=== PATIENT | female | born 1975 | race Caucasian/White ===

== ENCOUNTER 2017-12-11 17:15 | Emergency (ER) | payer MEDICAID ==
[~2017-12-11] VITALS: Ht 175.3 cm; Wt 72.7 kg
[2017-12-11 17:23] VITALS: BP 132/78; Ht 175.3 cm; Wt 72.7 kg
[2017-12-11 18:15] LABS: BASOPHILS 0.2 % (0-2); EOSINOPHILS 2.6 % (0-7); HEMATOCRIT 41.3 % (36.0-48.0); HEMOGLOBIN 14.5 g/dL (12-16); IMMATURE GRANULOCYTES 0.2 % (0-5); MCHC 35.1 g/dL (31.0-37.0); MCV 91.2 fL (80.0-100.0); MEAN PLATELET VOLUME 10.9 fL (7.4-10.4); MONOCYTES 12.6 % (2-11); NEUTROPHILS 53.4 % (40-80); PLATELET COUNT 254 10x3/uL (130-400); RBC 4.53 10x6/uL (4.00-5.40); RDW 12.3 % (11.5-14.5); WBC 6.6 10x3/uL (4.8-10.8)
[2017-12-11 18:19] LABS: APPEARANCE CLEAR (CLEAR); BILIRUBIN NEGATIVE (NEGATIVE); COLOR YELLOW (YELLOW); GLUCOSE NEGATIVE (NEGATIVE); KETONE NEGATIVE (NEGATIVE); NITRITE NEGATIVE (NEGATIVE); PROTEIN NEGATIVE (NEGATIVE); SPECIFIC GRAVITY 1.005 (1.005-1.020); UROBILINOGEN NORMAL (NORMAL)
[2017-12-11 18:31] LABS: ALBUMIN 3.5 g/dL (3.4-5.0); ALKALINE PHOSPHATASE 130 U/L (46-116); ALT (SGPT) 80 U/L (10-68); BILIRUBIN - TOTAL 0.26 mg/dL (0.2-1.3); CALC OSMOLALITY 275 mosm/kg (275-300); CALCIUM 8.3 mg/dL (8.5-10.1); CARBON DIOXIDE 26.8 mmol/L (21.0-32.0); CHLORIDE - SERUM 103 mmol/L (98-107); CREATININE - SERUM 0.6 mg/dL (0.6-1.3); GLUCOSE 93 mg/dL (74-106); POTASSIUM - SERUM 3.8 mmol/L (3.5-5.1); PROTEIN - SERUM 7.1 g/dL (6.4-8.2); SODIUM 139 mmol/L (136-145); UREA NITROGEN 7 mg/dL (7-18); eGFR NON AFRICAN AMERICAN > 90 mL/min (90-120)
[2017-12-11 19:13] LABS: HCG URINE NEGATIVE (NEGATIVE)
[2017-12-11 19:22] LABS: AMYLASE - SERUM 29 U/L (25-115); LIPASE 174 U/L (73-393)
== END 2017-12-11 20:24 | disposition left against medical advice (07) ==
LOC: D.ER 17:15
PROVIDERS: Family Medicine
DX: R10.9 Unspecified abdominal pain (principal)

== ENCOUNTER 2018-10-17 20:33 | Inpatient (IN) | payer MEDICAID ==
[~2018-10-17] VITALS: Ht 175.3 cm; Wt 68.0 kg
[2018-10-17 21:24] LABS: BASOPHILS 0.2 % (0-2); EOSINOPHILS 2.3 % (0-7); HEMATOCRIT 38.5 % (36.0-48.0); HEMOGLOBIN 13.8 g/dL (12-16); IMMATURE GRANULOCYTES 0.3 % (0-5); LYMPHOCYTES 25.3 % (15-50); MCH 31.9 pg (26.0-34.0); MCHC 35.8 g/dL (31.0-37.0); MCV 89.1 fL (80.0-100.0); MEAN PLATELET VOLUME 10.5 fL (7.4-10.4); MONOCYTES 14.9 % (2-11); PLATELET COUNT 298 10x3/uL (130-400); RBC 4.32 10x6/uL (4.00-5.40); RDW 12.4 % (11.5-14.5); WBC 11.9 10x3/uL (4.8-10.8)
--- NOTE | 2018-10-17 21:34 | NUR ---
PT STATES SHE DROPPED URINE SAMPLE IN THE TOILET. WILL TRY TO GET ANOTHER SAMPLE SOON.
[2018-10-17 21:44] LABS: ALBUMIN 3.9 g/dL (3.4-5.0); ALKALINE PHOSPHATASE 158 U/L (46-116); ALT (SGPT) 76 U/L (10-68); BILIRUBIN - TOTAL 0.63 mg/dL (0.2-1.3); CALC OSMOLALITY 280 mosm/kg (275-300); CALCIUM 9.2 mg/dL (8.5-10.1); CARBON DIOXIDE 27.9 mmol/L (21.0-32.0); CHLORIDE - SERUM 101 mmol/L (98-107); CREATININE - SERUM 0.8 mg/dL (0.6-1.3); GLUCOSE 106 mg/dL (74-106); POTASSIUM - SERUM 3.2 mmol/L (3.5-5.1); PROTEIN - SERUM 7.7 g/dL (6.4-8.2); SODIUM 138 mmol/L (136-145); UREA NITROGEN 26 mg/dL (7-18); eGFR NON AFRICAN AMERICAN 82 mL/min (90-120)
[2018-10-17 21:45] LABS: AMYLASE - SERUM 19 U/L (25-115); LIPASE 96 U/L (73-393)
[2018-10-17 21:47] LABS: TROPONIN-I < 0.017 ng/mL (0.000-0.060)
--- NOTE | 2018-10-17 23:57 | NUR ---
advised pt to obtain a urine sample when she is able. provided with urine cup.
--- NOTE | 2018-10-18 00:05 | NUR ---
PT PROVIDED URINE SAMPLE AT THIS TIME. SPECIMEN SENT TO LAB.
[2018-10-18 00:16] LABS: APPEARANCE CLOUDY (CLEAR); BILIRUBIN NEGATIVE (NEGATIVE); COLOR YELLOW (YELLOW); GLUCOSE NEGATIVE (NEGATIVE); HCG URINE NEGATIVE (NEGATIVE); KETONE NEGATIVE (NEGATIVE); NITRITE NEGATIVE (NEGATIVE); PROTEIN TRACE mg/dL (NEGATIVE); UROBILINOGEN NORMAL (NORMAL)
[2018-10-18 00:18] LABS: BACTERIA MODERATE /hpf (NONE SEEN); HYALINE CAST 0-5 /lpf (NONE SEEN); MUCUS <1+ /lpf (NONE SEEN); RED CELLS - URINE 0-5 /hpf (0-5)
[2018-10-18 03:15] VITALS: BP 95/57
--- NOTE | 2018-10-18 03:35 | NUR ---
RECEIVED PT FROM ER VIA W/C. ALERT AND ORIENTED X4. C/O NAUSEA. VOMITED APPROX 100 ML OF YELLOW EMESIS. DENIES PAIN. GEN WEAKNESS NOTED. RESP EVEN AND NONLABORED. NS @ 125 ML/HR INFUSING IN RT HAND WITHOUT DIFF. VOICE IS HOARSE. AMBULATORY. ENCOURAGED TO USE CALL MONTEJO FOR ASSISTANCE. SR ELEVATED X2. CL IN REACH.
--- NOTE | 2018-10-18 04:05 | NUR ---
MEDICATED WITH ZOFRAN FOR N/V. CL IN REACH.
[2018-10-18 04:19] VITALS: BP 97/46; BMI 22.2
--- NOTE | 2018-10-18 08:47 | NUR ---
PT ALERT X 4. BREATH SOUNDS CLEAR BILAT, NON-PRODUCTIVE COUGH, VOICE HOARSE. IV TO RIGHT WRIST, PATENT, DRESSING CDI. PT REPORTING PAIN OF 7/10, MEDICATED PER ORDERS, WILL MONITOR. BED LOW, CALL LIGHT IN REACH. NO OTHER NEEDS AT THIS TIME.
[2018-10-18 09:25] VITALS: BP 147/67
[2018-10-18 09:43] LABS: HEMATOCRIT 36.7 % (36.0-48.0); HEMOGLOBIN 13.3 g/dL (12-16); LYMPHOCYTES 29.8 % (15-50); MCH 32.9 pg (26.0-34.0); MCHC 36.2 g/dL (31.0-37.0); MCV 90.8 fL (80.0-100.0); MEAN PLATELET VOLUME 10.4 fL (7.4-10.4); PLATELET COUNT 251 10x3/uL (130-400); RBC 4.04 10x6/uL (4.00-5.40); RDW 12.7 % (11.5-14.5)
[2018-10-18 09:45] LABS: WBC 6.8 10x3/uL (4.8-10.8)
[2018-10-18 09:51] LABS: ALKALINE PHOSPHATASE 131 U/L (46-116); BILIRUBIN - TOTAL 0.39 mg/dL (0.2-1.3); CALC OSMOLALITY 280 mosm/kg (275-300); CALCIUM 8.1 mg/dL (8.5-10.1); CARBON DIOXIDE 27.4 mmol/L (21.0-32.0); CHLORIDE - SERUM 106 mmol/L (98-107); CREATININE - SERUM 0.7 mg/dL (0.6-1.3); GLUCOSE 100 mg/dL (74-106); PROTEIN - SERUM 5.9 g/dL (6.4-8.2); SODIUM 139 mmol/L (136-145); UREA NITROGEN 21 mg/dL (7-18); eGFR NON AFRICAN AMERICAN > 90 mL/min (90-120)
[2018-10-18 09:56] LABS: ALBUMIN 2.8 g/dL (3.4-5.0); ALT (SGPT) 50 U/L (10-68); POTASSIUM - SERUM 3.7 mmol/L (3.5-5.1)
[2018-10-18 13:10] VITALS: BP 96/62
[2018-10-18 14:33] VITALS: Ht 175.3 cm; Wt 68.0 kg
[2018-10-18 17:30] VITALS: BP 92/56
[2018-10-18 20:00] VITALS: BP 99/56
--- NOTE | 2018-10-18 22:27 | NUR ---
2029) REC'D. REQUESTING PAIN MED RATING ABD. PAIN 9 ON 1-10 PAIN SCALE.BP 99/56. DISCUSSED LOW BP AND TAKING HALF DOSE TO AVOID FURTHER DECREASE IN BP STATES WANT FULL DOSE.MORPHINE 4MG TITRATED WITH 4CC NS GIVEN IV SLOWLY FOR C/O ABD PAIN. WILL CONTINUE TO MONITOR FOR ANY CHGES AND FOLLOW CURRENT PLAN OF CARE
[2018-10-19] VITALS: BP 91/51
[2018-10-19 04:00] VITALS: BP 111/51
--- NOTE | 2018-10-19 04:27 | NUR ---
I have reviewed this patient and I concur with the Shift Assessment completed by the Licensed Practical Nurse today this shift.
[2018-10-19 06:38] LABS: BASOPHILS 0.1 % (0-2); EOSINOPHILS 3.6 % (0-7); HEMATOCRIT 37.1 % (36.0-48.0); HEMOGLOBIN 12.4 g/dL (12-16); IMMATURE GRANULOCYTES 0.1 % (0-5); MCH 31.1 pg (26.0-34.0); MCHC 33.4 g/dL (31.0-37.0); NEUTROPHILS 51.2 % (40-80); PLATELET COUNT 227 10x3/uL (130-400); RBC 3.99 10x6/uL (4.00-5.40); RDW 12.9 % (11.5-14.5); WBC 7.4 10x3/uL (4.8-10.8)
[2018-10-19 07:07] LABS: ALBUMIN 2.5 g/dL (3.4-5.0); ALKALINE PHOSPHATASE 116 U/L (46-116); ALT (SGPT) 50 U/L (10-68); BILIRUBIN - TOTAL 0.32 mg/dL (0.2-1.3); CALCIUM 7.8 mg/dL (8.5-10.1); CHLORIDE - SERUM 108 mmol/L (98-107); CREATININE - SERUM 0.6 mg/dL (0.6-1.3); GLUCOSE 81 mg/dL (74-106); PROTEIN - SERUM 5.8 g/dL (6.4-8.2); SODIUM 140 mmol/L (136-145); eGFR NON AFRICAN AMERICAN > 90 mL/min (90-120)
[2018-10-19 07:09] LABS: CALC OSMOLALITY 277 mosm/kg (275-300); POTASSIUM - SERUM 4.7 mmol/L (3.5-5.1); UREA NITROGEN 12 mg/dL (7-18)
--- NOTE | 2018-10-19 08:09 | NUR ---
SITTING IN BED. ALERT AND ORIENTED X 3. LUNGS WITH BILATERAL WHEEZES. HEART SOUNDS S1 AND S2 HEARD IN ALL STEVENS. BOWEL SOUNDS ACTIVE X 4. SKIN INTACT WITHOUT REDNESS. IV TO RIGHT WRIST PATENT WITHOUT REDNESS. DENIES PAIN. DENIES NEEDS. REFUSES SCDS. BED LOW. CALL MONTEJO AND PERSONAL ITEMS IN REACH. WILL CONTINUE TO MONITOR.
[2018-10-19 08:35] VITALS: BP 104/59
--- NOTE | 2018-10-19 10:09 | NUR ---
REQUESTED AND GIVEN PRN MORPHINE. BP 124/60 PRIOR TO MEDICATION.
--- NOTE | 2018-10-19 11:08 | NUR ---
RESTING IN BED. DENIES PAIN. DENIES NEEDS. WILL CONTINUE TO MONITOR.
[2018-10-19 12:49] VITALS: BP 99/51
--- NOTE | 2018-10-19 13:02 | NUR ---
PATIENT STATES WOULD LIKE TO SPEAK WITH DOCTOR. CRIS MONTEZ NOTIFIED.
--- NOTE | 2018-10-19 14:58 | NUR ---
PATIENT SLEEPING. WILL ATTEMPT TO GIVE MEDICATION WHEN WAKES UP.
--- NOTE | 2018-10-19 15:07 | NUR ---
REQUESTED AND GIVEN PRN MORPHINE. BP 119/68 PRIOR TO GIVING.
[2018-10-19 16:07] VITALS: BP 119/75
--- NOTE | 2018-10-19 17:23 | NUR ---
EDUCATION PROVIDED ON NEED FOR UA. HAT IN TOILET.
--- NOTE | 2018-10-19 17:36 | NUR ---
RESTING IN BED. DENIES PAIN. DENIES NEEDS.
[2018-10-19 20:00] VITALS: BP 116/64
[2018-10-20] VITALS: BP 102/63
--- NOTE | 2018-10-20 02:18 | NUR ---
REC'D. AT [facility]. OF SHIFT SITTING UPRIGHT IN BED.STATES JUST CAME OUT OF BATHROOM RATING PAIN 6 ON 1-10 PAIN SCALE.WILL CONTINUE TO MONITOR FOR ANY CHGES.AND FOLLOW CURRENT PLAN CARE.
--- NOTE | 2018-10-20 03:54 | NUR ---
I have reviewed this patient and I concur with the Shift Assessment completed by the Licensed Practical Nurse today this shift.
[2018-10-20 04:00] VITALS: BP 102/64
[2018-10-20 06:44] LABS: BASOPHILS 0.3 % (0-2); EOSINOPHILS 3.2 % (0-7); HEMATOCRIT 35.7 % (36.0-48.0); HEMOGLOBIN 11.9 g/dL (12-16); IMMATURE GRANULOCYTES 0.4 % (0-5); LYMPHOCYTES 31.5 % (15-50); MCH 31.2 pg (26.0-34.0); MCHC 33.3 g/dL (31.0-37.0); MCV 93.5 fL (80.0-100.0); MONOCYTES 14.1 % (2-11); NEUTROPHILS 50.5 % (40-80); PLATELET COUNT 260 10x3/uL (130-400); RBC 3.82 10x6/uL (4.00-5.40); RDW 13.2 % (11.5-14.5); WBC 7.4 10x3/uL (4.8-10.8)
[2018-10-20 07:11] LABS: ALBUMIN 2.5 g/dL (3.4-5.0); ALKALINE PHOSPHATASE 108 U/L (46-116); ALT (SGPT) 44 U/L (10-68); BILIRUBIN - TOTAL 0.22 mg/dL (0.2-1.3); CALC OSMOLALITY 278 mosm/kg (275-300); CALCIUM 8.1 mg/dL (8.5-10.1); CHLORIDE - SERUM 108 mmol/L (98-107); CREATININE - SERUM 0.6 mg/dL (0.6-1.3); GLUCOSE 77 mg/dL (74-106); POTASSIUM - SERUM 4.4 mmol/L (3.5-5.1); PROTEIN - SERUM 5.6 g/dL (6.4-8.2); SODIUM 141 mmol/L (136-145); UREA NITROGEN 9 mg/dL (7-18); eGFR NON AFRICAN AMERICAN > 90 mL/min (90-120)
[2018-10-20 07:13] LABS: CARBON DIOXIDE 26.2 mmol/L (21.0-32.0)
[2018-10-20 09:09] VITALS: BP 106/75
[2018-10-20] MEDS ORDERED: ACETAMINOPHEN325 MG PO (09:46)
[2018-10-20] MEDS ORDERED: TESSALON PERLE100 MG PO (09:47)
[2018-10-20] MEDS ORDERED: FLORAJEN3 CAPS460 MG PO (09:47)
[2018-10-20] MEDS ORDERED: MUCINEX600 MG PO (09:47)
[2018-10-20] MEDS ORDERED: OMNICEF300 MG PO (09:48)
[2018-10-20] MEDS ORDERED: ZITHROMAX500 MG PO (09:48)
[2018-10-20] MEDS ORDERED: Nicoderm [PBKC] TRANSDERM (09:49)
--- NOTE | 2018-10-20 10:38 | NUR ---
PT IS SITTING IN BED WITH EYES OPEN. RESPIRATIONS ARE EVEN AND UNLABORED. PT REPORTS PAIN. WILL ADDRESS. SEE EMAR. PT NOTIFIED OF NEED OF URINE SPECIMEN. PT ACKNOWLEDGES AND VERBALIZES UNDERSTANDING. PT DENIES PRESENCE OF DYSPNEA/PAIN/N/V AT THIS TIME. PT DENIES FURTHER NEEDS. BED IS IN THE LOWEST POSITION. CALL LIGHT AND BEDSIDE TABLE ARE WITHIN REACH. SIDE RAILS X 2. WILL CONT TO MONITOR.
--- NOTE | 2018-10-20 11:21 | NUR ---
DISCHARGE INSTRUCTIONS COVERED WITH PT. PRINTED RX GIVEN TO PT. ALL QUESTIONS ANSWERED. ALL DISCHARGE PAPERS SIGNED. PIV REMOVED FROM RIGHT WRIST WITH CATHETER TIP INTACT. DRESSING APPLIED. PT DENIES FURTHER QUESTIONS/CONCERNS. SIGNED DISCHARGE PAPERS PLACED IN PT CHART. PT TO NOTIFY NURSE WHEN READY FOR TRANPORT FROM ROOM.
--- NOTE | 2018-10-20 11:44 | MORECARE ---
CASE MANAGEMENT DISCHARGE SUMMARY PATIENT: CRISTINA LARSON UNIT: [id number] ADM DATE: 10/18/18 AGE: 43 : [birth year] SEX: F ROOM/BED: D.2235 AUTHOR: CHANA,DOC PHYSICIAN: REFERRING PHYSICIAN: ANAHY STAHL MD DATE OF SERVICE: 10/20/18 Discharge Plan Patient Name: CRISTINA LARSON Facility: [facility]:[place] : 1975 Planned Disposition: Home Anticipated Discharge Date: 10/20/18 Discharge Date: Expected LOS: 2 Initial Reviewer: [email or web address] Initial Review Date: 10/20/2018 Generated: 10/20/18 12:44 pm Comments DCP- Discharge Planning Updated by [email or web address]: Antonette Valera on 10/20/18 10:[address] Patient Name: CRISTINA LARSON Admission Status: ER Accout number: [id number] Admission Date: 10-18-2018 : 1975 Admission Diagnosis: Attending: ANAHY STAHL Current LOS: 2 Anticipated DC Date: 10-20-2018 Planned Disposition: Home [place]: [place] [employer] Discharge Planning Comments: CM met with patient to complete initial dc planning assessment. CM educated patient on the CM role and verbal consent given by patient to complete assessment. Patient lives at home alone, states her parents live on the same property. At discharge patient plans to return and feels this is a safe discharge. States her mom or dad will pick her up CM discussed availability of home health, rehab services, and medical equipment. Patient denied known discharge needs at this time. No needs identified. CM will continue to follow and will assist as needed with dc plans/needs. Hose Cementer: Antonette Valera DCPIA - Discharge Planning Initial Assessment Updated by [email or web address]: Antonette Valera on 10/20/18 11:37 am * Is the patient Alert and Oriented? Yes * How many steps to enter\exit or inside your home? 3/0 * PCP Dr. Stahl * Pharmacy [facility] on [address] * Preadmission Environment Home Alone * ADLs Independent * Equipment None * List name and contact numbers for known caregivers / representatives who currently or will assist patient after discharge: Marycarmen Dobson - [phone] * Verbal permission to speak to the caregivers and representatives has been obtained from the patient. Yes * Community resources currently utilized None * Additional services required to return to the preadmission environment? No * Can the patient safely return to the preadmission environment? Yes * Has this patient been hospitalized within the prior 30 days at any hospital? No Patient Name: CRISTINA LARSON Page [id number] at 1144 All edits/amendments must be made on the electronic document DICTATION DATE: 10/20/18 1144 JEWEL BEARING MAKER: JONNY 10/20/18 1144 RPT#: [id number] DC DATE: STATUS: ADM IN [facility] [address] [place] [address] END OF REPORT
--- NOTE | 2018-10-20 12:00 | NUR ---
PT TRANSPORTED FROM ROOM VIA WHEELCHAIR BY HOSPITAL VOLUNTEER STAFF.
--- NOTE | 2018-10-21 09:08 | MORECARE ---
CASE MANAGEMENT DISCHARGE SUMMARY PATIENT: CRISTINA LARSON UNIT: [id number] ADM DATE: 10/18/18 AGE: 43 : 73 SEX: F ROOM/BED: D.2235 AUTHOR: CHANA,DOC PHYSICIAN: REFERRING PHYSICIAN: ANAHY STAHL MD DATE OF SERVICE: 10/21/18 Discharge Plan Patient Name: CRISTINA LARSON Facility: [facility]:[place] : 1975 Planned Disposition: Home Anticipated Discharge Date: 10/20/18 Discharge Date: 10/20/2018 Expected LOS: 2 Initial Reviewer: [email or web address] Initial Review Date: 10/20/2018 Generated: 10/21/18 10:08 am Comments DCP- Discharge Planning Updated by [email or web address]: Antonette Valera on 10/20/18 10:[address] Patient Name: CRISTINA LARSON Admission Status: ER Accout number: [id number] Admission Date: 10-18-2018 : 1975 Admission Diagnosis: Attending: ANAHY STAHL Current LOS: 2 Anticipated DC Date: 10-20-2018 Planned Disposition: Home [place] Insurance: [place] [employer] [facility] Discharge Planning Comments: CM met with patient to complete initial dc planning assessment. CM educated patient on the CM role and verbal consent given by patient to complete assessment. Patient lives at home alone, states her parents live on the same property. At discharge patient plans to return and feels this is a safe discharge. States her mom or dad will pick her up CM discussed availability of home health, rehab services, and medical equipment. Patient denied known discharge needs at this time. No needs identified. CM will continue to follow and will assist as needed with dc plans/needs. Product Support Analyst: Antonette Valera DCPIA - Discharge Planning Initial Assessment Updated by [email or web address]: Antonette Valera on 10/20/18 11:37 am * Is the patient Alert and Oriented? Yes * How many steps to enter\exit or inside your home? 3/0 * PCP Dr. Stahl * Pharmacy [facility] on [address] * Preadmission Environment Home Alone * ADLs Independent * Equipment None * List name and contact numbers for known caregivers / representatives who currently or will assist patient after discharge: Marycarmen Lindsay - [facility] - [phone] * Verbal permission to speak to the caregivers and representatives has been obtained from the patient. Yes * Community resources currently utilized None * Additional services required to return to the preadmission environment? No * Can the patient safely return to the preadmission environment? Yes * Has this patient been hospitalized within the prior 30 days at any hospital? No Last DP export: 10/20/18 10:44 a Patient Name: CRISTINA LARSON Page [id number] at 0908 All edits/amendments must be made on the electronic document DICTATION DATE: 10/21/18907 FOOD MIXER ASSEMBLER: JONNY 10/21/18907 RPT#: [id number] DC DATE:10/20/18 STATUS: DIS IN [facility] [address] [place] [address] END OF REPORT
== END 2018-10-20 12:21 | disposition home or self-care (01) | DRG 193 ==
LOC: D.ER 20:33 → D.MS 10-18 02:42
PROVIDERS: Family Medicine; ADMIT Family Medicine; ATTEND Family Medicine
DX: J18.9 Pneumonia, unspecified organism (principal); J96.01 Acute respiratory failure with hypoxia; F17.203 Nicotine dependence unspecified, with withdrawal; N39.0 Urinary tract infection, site not specified; C79.60 Secondary malignant neoplasm of unspecified ovary; E87.6 Hypokalemia; Z85.41 Personal history of malignant neoplasm of cervix uteri

== ENCOUNTER 2018-12-11 20:13 | Emergency (ER) | payer MEDICAID ==
[~2018-12-11] VITALS: Ht 175.3 cm; Wt 68.2 kg
[~2018-12-11 20:13] MED LIST: ACETAMINOPHEN325 MG PO; FLORAJEN3 CAPS460 MG PO; MUCINEX600 MG PO; Nicoderm [PBKC] TRANSDERM; OMNICEF300 MG PO; TESSALON PERLE100 MG PO; ZITHROMAX500 MG PO
[2018-12-11 20:30] VITALS: Ht 175.3 cm; Wt 68.2 kg
[2018-12-11 21:05] LABS: APTT 31.3 SECONDS (22.8-39.4); INR 0.96 (0.85-1.17); PROTIME 12.3 SECONDS (11.6-15.0)
[2018-12-11 21:14] LABS: ALBUMIN 3.3 g/dL (3.4-5.0); ALKALINE PHOSPHATASE 126 U/L (46-116); ALT (SGPT) 63 U/L (10-68); BILIRUBIN - TOTAL 0.29 mg/dL (0.2-1.3); CALC OSMOLALITY 279 mosm/kg (275-300); CALCIUM 8.2 mg/dL (8.5-10.1); CHLORIDE - SERUM 106 mmol/L (98-107); CREATININE - SERUM 0.8 mg/dL (0.6-1.3); GLUCOSE 101 mg/dL (74-106); POTASSIUM - SERUM 3.7 mmol/L (3.5-5.1); PROTEIN - SERUM 6.8 g/dL (6.4-8.2); SODIUM 140 mmol/L (136-145); UREA NITROGEN 14 mg/dL (7-18); eGFR NON AFRICAN AMERICAN 82 mL/min (90-120)
[2018-12-11 21:16] LABS: HEMATOCRIT 38.9 % (36.0-48.0); HEMOGLOBIN 13.4 g/dL (12-16); MCH 31.8 pg (26.0-34.0); MCHC 34.4 g/dL (31.0-37.0); MCV 92.4 fL (80.0-100.0); MEAN PLATELET VOLUME 10.5 fL (7.4-10.4); RBC 4.21 10x6/uL (4.00-5.40); RDW 13.7 % (11.5-14.5); WBC 6.5 10x3/uL (4.8-10.8)
[2018-12-11 21:17] LABS: PLATELET COUNT 200 10x3/uL (130-400)
[2018-12-11 21:25] LABS: CKMB 1.8 U/L (0.0-3.6); CREATINE KINASE 94 UL (21-215); PRO BNP 53 pg/mL (0-125)
[2018-12-11 21:30] LABS: TROPONIN-I < 0.017 ng/mL (0.000-0.060)
[2018-12-11 21:39] LABS: EOSINOPHILS 1 % (0-7); LYMPHOCYTES 52 % (15-50); MONOCYTES 3 % (2-11); NEUTROPHILS 40 % (40-80); PLATELET ESTIMATE NORMAL
[2018-12-11 21:40] LABS: TEAR DROP CELLS 1+
[2018-12-11] MEDS ORDERED: TESSALON PERLE100 MG PO (22:24)
[2018-12-11] MEDS ORDERED: AUGMENTIN 875-11 TAB PO (22:24)
[2018-12-11] MEDS ORDERED: FLUTICASONE PRO16 GM NASAL (22:24)
[2018-12-11 22:54] VITALS: BP 104/71
== END 2018-12-11 22:54 | disposition home or self-care (01) ==
LOC: D.ER 20:13
PROVIDERS: Family Medicine
DX: J18.9 Pneumonia, unspecified organism (principal)